=== PATIENT | female | born 1950 | race Caucasian/White ===

== ENCOUNTER 2024-02-11 06:58 | Day surgery (SDC) | payer OTHER ==
[~2024-02-11] VITALS: Ht 154.9 cm; Wt 78.2 kg
[~2024-02-11 06:58] MED LIST: Ativan0.5 MG PO; Balanced Salt Epinephrine Irrigation Solution 500 mL IR SCH; Lidocaine HCl/Pf 1% 5 ML VIAL ONE; Lidocaine HCl/Pf 1% 5 ML VIAL XX SCH; Moxifloxacin HCL 0.5 MG/0.1 ML 0.4MLSYR RIGHTEYE SCH; NS 500 ML IV ONE; NS 500 ML ONE; PHENYLEPHRINE\\TROPICAMIDE\\TETRACAINE OPHTHALMIC DILATING SOLN RIGHTEYE PRN; Povidone-Iodine 450 DROP/30 ML Solution RIGHTEYE SCH; Ultram50 MG PO
[2024-02-11] MEDS ORDERED: NS 500 ML IV ONE (07:39)
--- NOTE | 2024-02-11 07:55 | NUR ---
02/11/24 0755 Pratibha Khan IN AT 0744 PLEURIELETT IN AT 0746 CALL LIGHT AT BEDSIDE
[2024-02-11] MEDS ORDERED: FentaNYL Citrate 50 MCG/ML 2 ML Injection ONE (08:19)
[2024-02-11] MEDS ORDERED: Midazolam HCl 1MG / ML 2ML Vial ONE (08:19)
[2024-02-11] MEDS ORDERED: Tetracaine HCl 0.5% Opth Soln 15 ml RIGHTEYE ONE (08:32)
[2024-02-11 08:58] VITALS: BP 129/64
== END 2024-02-11 09:09 | disposition home or self-care (01) ==
LOC: ORSCSDS 06:58
PROVIDERS: Student in an Organized Health Care Education/Training Program
PROC: 08RJ3JZ Replacement of Right Lens with Synthetic Substitute, Percutaneous Approach (ICD-10-PCS; principal; 2024-02-11 08:30)
DX: H25.11 Age-related nuclear cataract, right eye (principal); K21.9 Gastro-esophageal reflux disease without esophagitis
CPT/HCPCS: J2001; J2250; J3010; J7040; V2632